=== PATIENT | female | born 1980 | race Caucasian/White ===

== ENCOUNTER 2018-09-13 21:26 | Emergency (ER) | payer OTHER ==
[2018-09-13 21:41] VITALS: BP 152/90; PULSE 86; O2SAT 96
--- NOTE | 2018-09-13 21:52 | ERPHSYRPT ---
- History of Present Illness Time Seen by Provider: 09/13/18 21:49 Source: patient Exam Limitations: no limitations Patient Subjective Stated Complaint: pt states she had surgery to foot this morning, noticed bright red blood soaked through bandages and caity bandage this evening, bandage removed and found incision to be partially unapproximated. pt unsure how it happened. Surgeon asked her to come in. Triage Nursing Assessment: pink/warm/dry, resp easy, a&ox4, wheeled in, non weight bearing to rt leg d/t surgery. surgeon called and spoke to nurse Osbaldo rn who asked for wound to be steri stripped and then sent home. Physician History: pt states she had surgery to foot this morning, noticed bright red blood soaked through bandages and caity bandage this evening, bandage removed and found incision to be partially unapproximated. pt unsure how it happened. Surgeon asked her to come in. No bleeding Occurred: just prior to arrival Allergies/Adverse Reactions: atorvastatin calcium [From Lipitor] Allergy (Verified 09/13/18 21:32) Dbeyixb-Ytj-Czz Reductase Inhibitor Allergy (Verified 09/13/18 21:32) Hx Tetanus, Diphtheria Vaccination/Date Given: Yes Hx Influenza Vaccination/Date Given: No Hx Pneumococcal Vaccination/Date Given: No Immunizations Up to Date: No - Review of Systems Constitutional: No Symptoms Eyes: No Symptoms Ears, Nose, & Throat: No Symptoms Respiratory: No Symptoms Cardiac: No Symptoms Musculoskeletal: No Symptoms Skin: No Symptoms - Past Medical History Pertinent Past Medical History: Yes Cardiac History: Myocardial Infarction ([place]) Respiratory History: Asthma Endocrine Medical History: Hypothyroidism Musculoskeletal History: Arthritis History: No Pertinent History Psycho-Social History: No Pertinent History Female Reproductive Disorders: Menstrual Problems - Past Surgical History Past Surgical History: Yes Cardiac: Cardiac Catheterization, Other Musculoskeletal: Orthopedic Surgery Female Surgical History: Section, Hysterectomy Other Surgical History: had open heart to fix aoritc valve leaflet, rt ankle tendon - Social History Smoking Status: Never smoker Exposure to second hand smoke: No Drug Use: none - Female History Hx Now: No - Nursing Vital Signs Nursing Vital Signs: Initial Vital Signs Pulse Rate 86 09/13/18 21:33 Respiratory Rate 16 09/13/18 21:33 Blood Pressure 152/90 09/13/18 21:33 O2 Sat by Pulse Oximetry 96 09/13/18 21:33 Pain Scale Pain Intensity 0 - Physical Exam General Appearance: no apparent distress Eyes, Ears, Nose, Throat Exam: normal ENT inspection Neck Exam: normal inspection Back Exam: normal inspection Foot Exam: right foot: soft tissue tenderness SpO2: 96 - Course Nursing assessment & vital signs reviewed: Yes Ordered Tests: Active Orders 24 hr Category Date Time Status Wound Care STAT Care 09/13/18 21:47 Active - Progress Progress: improved Progress Note: 09/13/18 21:50 wound care, steristripes Counseled pt/family regarding: diagnosis, need for follow-up - Departure Departure Disposition: Home Clinical Impression: Wound disruption Qualifiers: Encounter type: initial encounter Qualified Code(s): T81.30XA - Disruption of wound, unspecified, initial encounter Condition: Stable Critical Care Time: No Referrals: LUZMA POND NP [Primary Care Provider] - Additional Instructions: Discharge/Care Plan FRAN MARTINO was seen on 09/13/18 in the Emergency Room. The patient was counseled regarding Diagnosis,Lab results, Imaging studies, need for follow up and when to return to the Emergency Room. Prescriptions given: Discharge Note I have spoken with the patient and/or caregivers. I have explained the patient' s condition, diagnosis and treatment plan based on the information available to me at this time. I have answered the patient's and/or caregiver's questions and addressed any concerns. The patient and/or caregivers have as good understanding of the patient's diagnosis, condition and treatment plan as can be expected at this point. The vital signs have been stable. The patient's condition is stable and appropriate for discharge from the emergency department. The patient will pursue further outpatient evaluation with the primary care physician or other designated or consulting physician as outlined in the discharge instructions. The patient and/or caregivers are agreeable to this plan of care and follow-up instructions have been explained in detail. The patient and/or caregivers have received these instruction. The patient/and or caregivers are aware that any significant change in condition or worsening of symptoms should prompt an immediate return to this or the closest emergency department or call 911.
== END 2018-09-13 21:59 | disposition home or self-care (01) ==
LOC: ED 21:26
DX: T81.30XA Disruption of wound, unspecified, initial encounter (principal); Z98.890 Other specified postprocedural states; E03.9 Hypothyroidism, unspecified; M19.90 Unspecified osteoarthritis, unspecified site; I25.2 Old myocardial infarction
CPT/HCPCS: 99283

== ENCOUNTER 2020-02-22 15:22 | Emergency (ER) | payer OTHER ==
[2020-02-22] MEDS ORDERED: DUONEB 0.5-3 MG/3 ml Neb IH ONE ×2 (15:38)
[2020-02-22] MEDS ORDERED: solu-MEDROL 125 MG IV ONE (15:38)
[2020-02-22 15:50] VITALS: O2SAT 98
[2020-02-22] MEDS ORDERED: solu-MEDROL 125 MG ONE (15:53)
--- NOTE | 2020-02-22 16:02 | ERPHSYRPT ---
- History of Present Illness Time Seen by Provider: 02/22/20 15:39 Source: patient Exam Limitations: no limitations Patient Subjective Stated Complaint: asthma attack yesterday night Triage Nursing Assessment: pt to ED c/o not being able to take a deep breath. reports hx asthma and had asthma attack yesterday evening. has been using IH since then with minimal relief. reports aching in chest when attempting to take deep breath. lungs clear and equal, faint wheezing noted in L base of lung. no resp distress noted. Physician History: 39 years old female with history of asthma presented to the ER with chief complaint of sudden onset shortness of breath, tightness last night when she was cleaning. Also reports wheezings. She did use albuterol with no significant relief. No chest pain palpitations. She has minimal rectal dry cough. No fever or chills reported. Timing/Duration: yesterday, sudden, worse Activities at Onset: activity Severity of Dyspnea-Max: moderate Severity of Dyspnea-Current: moderate Possible Cause: occasional episodes, unknown cause Modifying Factors: Improves With: albuterol inhaler Associated Symptoms: cough, wheezing, No fever, No weakness, No heaviness, No heart racing Allergies/Adverse Reactions: atorvastatin calcium [From Lipitor] Allergy (Verified 02/22/20 15:35) Huyoeoh-Rrx-Goj Reductase Inhibitor Allergy (Verified 02/22/20 15:35) Home Medications: Aspirin 81 mg PO DAILY 02/22/20 [History] Desvenlafaxine Succinate [Pristiq ER] 50 mg PO DAILY 02/22/20 [History] Hydrochlorothiazide 12.5 mg PO DAILY 02/22/20 [History] Levothyroxine Sodium 112 Mcg [Synthroid 112 Mcg] 112 mcg PO DAILY 02/22/20 [History] Losartan Potassium 50 mg [Cozaar 50 MG] 50 mg PO BID 02/22/20 [History] Magnesium Oxide 400 mg [Mag-Ox 400] 400 mg PO DAILY 02/22/20 [History] Vits W-Ca,Fe,FA(<1Mg) [] 1 tab PO DAILY 02/22/20 [History] Spironolactone 50 mg PO DAILY 02/22/20 [History] Hx Tetanus, Diphtheria Vaccination/Date Given: No Hx Influenza Vaccination/Date Given: No Hx Pneumococcal Vaccination/Date Given: No Immunizations Up to Date: No Travel Risk - International Travel Have you traveled outside of the country in past 3 weeks: No - Coronavirus Screening Are you exhibiting any of the following symptoms?: No Close contact with a COVID-19 positive Pt in past 14-21 Days: No - Review of Systems Constitutional: No Symptoms Eyes: No Symptoms Ears, Nose, & Throat: No Symptoms Respiratory: Cough, Wheezing Cardiac: No Symptoms Abdominal/Gastrointestinal: No Symptoms Genitourinary Symptoms: No Symptoms Musculoskeletal: No Symptoms Skin: No Symptoms Neurological: No Symptoms Psychological: No Symptoms Endocrine: No Symptoms Hematologic/Lymphatic: No Symptoms - Past Medical History Pertinent Past Medical History: Yes Cardiac History: Myocardial Infarction ([place]) Respiratory History: Asthma Endocrine Medical History: Hypothyroidism Musculoskeletal History: Arthritis History: No Pertinent History Psycho-Social History: No Pertinent History Female Reproductive Disorders: No Pertinent History - Past Surgical History Past Surgical History: Yes Cardiac: Cardiac Catheterization, Other Musculoskeletal: Orthopedic Surgery Female Surgical History: Section, Hysterectomy Other Surgical History: had open heart to fix aoritc valve leaflet, rt ankle tendon - Social History Smoking Status: Never smoker Exposure to second hand smoke: No Drug Use: none Patient Lives Alone: No - Female History Hx Now: No - Nursing Vital Signs Nursing Vital Signs: Initial Vital Signs Temperature 98.6 F 02/22/20 15:25 Pulse Rate 91 H 02/22/20 15:25 Respiratory Rate 16 02/22/20 15:25 Blood Pressure 159/99 02/22/20 15:25 O2 Sat by Pulse Oximetry 99 02/22/20 15:25 Pain Scale Pain Intensity 0 - Physical Exam General Appearance: no apparent distress, alert Eye Exam: PERRL/EOMI, eyes nml inspection Ears, Nose, Throat Exam: hearing grossly normal, normal ENT inspection, normal pharynx Neck Exam: normal inspection, non-tender, supple, full range of motion Respiratory Exam: diminished breath sounds, wheezing, No respiratory distress, No crackles/rales Cardiovascular/Chest Exam: normal heart sounds, regular rate/rhythm Abdominal/Gastrointestinal Exam: soft, normal bowel sounds, No tenderness Extremity Exam: non-tender, normal range of motion, normal inspection Neurologic Exam: alert, 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, cooperative, 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-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 nml as tested Skin Exam: normal color, warm SpO2 Interpretation: normal SpO2: 98 O2 Delivery: Room Air - Course EKG Interpreted by Me: RATE (82), Sinus Rhythm, NORMAL AXIS, NORMAL INTERVALS, Q-wave (inf leads) Ordered Tests: Active Orders 24 hr Category Date Time Status Band Cutter STAT Care 02/22/20 15:40 Completed EKG-ER Only STAT Care 02/22/20 15:38 Completed IV Insertion STAT Care 02/22/20 15:38 Completed CHEST 1 VIEW (PORTABLE) Stat Exams 02/22/20 15:40 Completed CBC W DIFF Stat Lab 02/22/20 16:09 Completed CMP Stat Lab 02/22/20 16:09 Completed D-DIMER QUANTITATIVE Stat Lab 02/22/20 16:09 Completed HCG,QUALITATIVE URINE Stat Lab 02/22/20 16:09 Completed MAGNESIUM Stat Lab 02/22/20 16:09 Completed NT PRO BNP Stat Lab 02/22/20 16:09 Completed TROPONIN Q3H Lab 02/22/20 16:09 Completed TROPONIN Q3H Lab 02/22/20 17:50 Completed Respiratory Therapy Assessment DAILY RT 02/22/20 15:47 Completed Medication Summary Discontinued Medications Generic Name Dose Route Start Last Admin Trade Name Freq PRN Reason Stop Dose Admin Albuterol/Ipratropium Confirm 02/22/20 15:38 Duoneb 0.5-3 Mg/3 Ml Neb Administered 02/22/20 15:39 Dose 3 ml IH .STK-MED ONE Albuterol/Ipratropium 3 ml 02/22/20 15:38 02/22/20 15:48 Duoneb 0.5-3 Mg/3 Ml Neb IH 02/22/20 15:39 3 ml STAT ONE Administration Methylprednisolone Sodium Succinate 125 mg 02/22/20 15:38 02/22/20 16:03 Solu-Medrol 125 Mg IV 02/22/20 15:39 125 mg STAT ONE Administration Methylprednisolone Sodium Succinate Confirm 02/22/20 15:53 Solu-Medrol 125 Mg Administered 02/22/20 15:54 Dose 125 mg .ROUTE .STK-MED ONE Lab/Rad Data: Laboratory Result Diagrams 02/22/20 16:09 02/22/20 16:09 Laboratory Results 02/22/20 02/22/20 02/22/20 Range/Units 17:50 16:09 16:09 WBC (4.0-10.5) K/mm3 RBC (4.1-5.4) M/mm3 Hgb (12.0-16.0) gm/dl Hct (35-47) % MCV (78-100) fl MCH (26-32) pg MCHC (32-36) g/dl RDW (11.5-14.0) % Plt Count (150-450) K/mm3 MPV (7.5-11.0) fl Gran % (36.0-66.0) % Eos # (Auto) (0-0.5) Absolute Lymphs (auto) (1.0-4.6) Absolute Monos (auto) (0.0-1.3) Lymphocytes % (24.0-44.0) % Monocytes % (0.0-12.0) % Eosinophils % (0.00-5.0) % Basophils % (0.0-0.4) % Absolute Granulocytes (1.4-6.9) Basophils # (0-0.4) D-Dimer (215-500) ng/mL Sodium (137-145) mmol/L Potassium (3.5-5.1) mmol/L Chloride (98-107) mmol/L Carbon Dioxide (22-30) mmol/L Anion Gap (5-15) MEQ/L BUN (7-17) mg/dL Creatinine (0.52-1.04) mg/dL Estimated GFR ML/MIN Glucose (74-106) mg/dL Calcium (8.4-10.2) mg/dL Magnesium (1.6-2.3) mg/dL Total Bilirubin (0.2-1.3) mg/dL AST (14-36) U/L ALT (0-35) U/L Alkaline Phosphatase (38-126) U/L Troponin I < 0.012 < 0.012 (0.000-0.034) ng/mL NT-Pro-B Natriuret Pep (0-450) pg/mL Serum Total Protein (6.3-8.2) g/dL Albumin (3.5-5.0) g/dL Urine HCG, Qual NEGATIVE (Negative) 02/22/20 02/22/20 02/22/20 Range/Units 16:09 16: 16:09 WBC 11.4 H (4.0-10.5) K/mm3 RBC 5.22 (4.1-5.4) M/mm3 Hgb 14.9 (12.0-16.0) gm/dl Hct 44.8 (35-47) % MCV 85.8 (78-100) fl MCH 28.5 (26-32) pg MCHC 33.3 (32-36) g/dl RDW 12.7 (11.5-14.0) % Plt Count 252 (150-450) K/mm3 MPV 9.6 (7.5-11.0) fl Gran % 67.9 H (36.0-66.0) % Eos # (Auto) 0.36 (0-0.5) Absolute Lymphs (auto) 2.38 (1.0-4.6) Absolute Monos (auto) 0.87 (0.0-1.3) Lymphocytes % 21.0 L (24.0-44.0) % Monocytes % 7.7 (0.0-12.0) % Eosinophils % 3.2 (0.00-5.0) % Basophils % 0.2 (0.0-0.4) % Absolute Granulocytes 7.73 H (1.4-6.9) Basophils # 0.02 (0-0.4) D-Dimer 292 (215-500) ng/mL Sodium 138 (137-145) mmol/L Potassium 3.8 (3.5-5.1) mmol/L Chloride 104 (98-107) mmol/L Carbon Dioxide 28 (22-30) mmol/L Anion Gap 8.8 (5-15) MEQ/L BUN 13 (7-17) mg/dL Creatinine 0.82 (0.52-1.04) mg/dL Estimated GFR > 60.0 ML/MIN Glucose 95 (74-106) mg/dL Calcium 9.6 (8.4-10.2) mg/dL Magnesium 1.8 (1.6-2.3) mg/dL Total Bilirubin 0.30 (0.2-1.3) mg/dL AST 22 (14-36) U/L ALT 21 (0-35) U/L Alkaline Phosphatase 60 (38-126) U/L Troponin I (0.000-0.034) ng/mL NT-Pro-B Natriuret Pep 57.1 (0-450) pg/mL Serum Total Protein 7.0 (6.3-8.2) g/dL Albumin 4.2 (3.5-5.0) g/dL Urine HCG, Qual (Negative) - Progress Progress: improved Air Movement: good Progress Note: She is given DuoNeb and Solu-Medrol. Ruled out acute coronary syndrome, pulmonary embolism, pneumonia, pneumothorax. Patient is feeling much better on reevaluation. I believe she has asthma exacerbation we will continue with albuterol and steroid to go home. Discussed signs symptoms of worsening needing return to ER which she seems understanding. Blood Culture(s) Obtained: No Antibiotics given: No Counseled pt/family regarding: lab results, diagnosis, need for follow-up, samuel reddy - Departure Departure Disposition: Home Clinical Impression: Asthma exacerbation, mild Condition: Stable Critical Care Time: No Referrals: LUZMA POND, [employer] [employer] [Primary Care Provider] - Follow Up with PCP/3 days Instructions: Asthma, Adult ([place]) Additional Instructions: Use albuterol inhaler which you have at home every 4-6 hourly as needed. Take Tylenol as needed. Follow-up with your primary care physician for reevaluation. Return to ER for worsening wheezing/shortness of breath/cough or if develop fever chills/chest pain etc. Prescriptions: Prednisone 20 mg [Deltasone 20 mg] 60 mg PO DAILY 5 Days #15 tablet
[2020-02-22 16:14] LABS: Absolute Neutrophil Ct (ANC) 7.73 (1.4-6.9); BASOPHIL % 0.2 % (0.0-0.4); Basophil (Absolute #) 0.02 (0-0.4); Eosinophil % 3.2 % (0.00-5.0); Eosinophil (Absolute #) 0.36 (0-0.5); Hematocrit 44.8 % (35-47); Hemoglobin 14.9 gm/dl (12.0-16.0); Lymphocyte (Absolute #) 2.38 (1.0-4.6); Mean Cell Volume 85.8 fl (78-100); Mean Corpuscular Hemoglobin 28.5 pg (26-32); Mean Corpuscular Hgb Concent. 33.3 g/dl (32-36); Mean Platelet Volume 9.6 fl (7.5-11.0); Monocyte (Absolute #) 0.87 (0.0-1.3); Monocytes % 7.7 % (0.0-12.0); Neutrophil % 67.9 % (36.0-66.0); Platelet Count 252 K/mm3 (150-450); Red Blood Count 5.22 M/mm3 (4.1-5.4); Red Cell Distribution Width 12.7 % (11.5-14.0); White Blood Count 11.4 K/mm3 (4.0-10.5)
[2020-02-22 16:34] LABS: ALBUMIN 4.2 g/dL (3.5-5.0); ALKALINE PHOSPHATASE 60 U/L (38-126); ANION GAP 8.8 MEQ/L (5-15); BLOOD UREA NITROGEN 13 mg/dL (7-17); CHLORIDE 104 mmol/L (98-107); Calcium 9.6 mg/dL (8.4-10.2); Carbon Dioxide 28 mmol/L (22-30); Creatinine 1 0.82 mg/dL (0.52-1.04); EST GLOMERULAR FILTRATION RATE > 60.0 ML/MIN; Glucose 95 mg/dL (74-106); MAGNESIUM 1.8 mg/dL (1.6-2.3); NT PRO BNP 57.1 pg/mL (0-450); Potassium 3.8 mmol/L (3.5-5.1); SGOT/AST 22 U/L (14-36); SGPT/ALT 21 U/L (0-35); SODIUM 138 mmol/L (137-145)
[2020-02-22 17:26] VITALS: BP 150/90; PULSE 72
--- NOTE | 2020-02-22 18:13 | XRAY ---
Indication: Short of breath. Comparison: July 21, 2017. Portable apical lordotic chest remains clear. Heart is not enlarged again with CABG surgery. Bony thorax intact again with minimal degenerative changes and sternotomy wires. Impression: Continued nonacute chest with chronic features.
== END 2020-02-22 19:06 | disposition home or self-care (01) ==
LOC: ED 15:22
DX: J45.901 Unspecified asthma with (acute) exacerbation (principal)
CPT/HCPCS: 36000; 36415; 71045; 80053; 83735; 83880; 84484; 84703; 85025; 85379; 93005; 93041; 94640; 96374; 99284; J2930; A9270-GY

== ENCOUNTER 2021-08-04 18:58 | Emergency (ER) | payer OTHER ==
--- NOTE | 2021-08-04 21:54 | ERPHSYRPT ---
- History of Present Illness Time Seen by Provider: 08/04/21 20:20 Source: patient Exam Limitations: no limitations Patient Subjective Stated Complaint: Patient's nose began to bleed approx one hour prior to coming to ED. She does not have nosebleeds, this is new for her. Patient states she started on a new medicine, welburtin approx 10 to 11 days ago and is wondering if this could be a side effect from that. Patient states she also states she has high blood pressure and her mother had a recent set of events in the past that led to a stroke that has the patient worried/anxious. Patient denies any pain. Triage Nursing Assessment: Patient ambulated back to ED without difficulties. She is alert, oriented, pleasant, and answering questions appropriately. Nose actively bleeding out of left nare upon bringing patient back to ED; moderate amount of bleeding with no clots noted. Nasal bones noted to curve to the left, patient states her sister broke her nose once when they were kids. Patient denies any recent trauma to her nose. Patient instructed on the proper way to clamp nose, hold pressure, and apply cold compress to area during an active nose bleed. Patient very receptive to teaching. She is anxious though and became tearful when explaining her concerns about her health in relation to a previous health event with her mother. Patient Physician History: Patient is a 41-year-old female presents to our emergency department for evaluation of a nosebleed. Nosebleed started approximately 1 hour prior to arrival. Patient does not know how to control her nosebleeds has had to come to our ED for evaluation. Patient denies history of the same. Patient started Wellbutrin approximately 10 to 11 days ago. Patient wondering if this may have caused her nosebleed. No trauma. No fever. Patient is not on blood thinners. Symptoms are mild to moderate in intensity. Patient denies active pain. No easy bruising patient voices no other complaints or concerns at this time. Timing/Duration: today Severity: moderate Modifying Factors: Improves With: nothing Associated Symptoms: denies symptoms Allergies/Adverse Reactions: atorvastatin calcium [From Lipitor] Allergy (Verified 08/04/21 20:12) Edtgzwp-KTL-OxD Reductase Inhibitor [Qowjtpw-Jtr-Hfy Reductase Inhibitor] Allerg y (Verified 08/04/21 20:12) Home Medications: Levothyroxine Sodium 112 Mcg [Synthroid 112 Mcg] 112 mcg PO DAILY 02/22/20 [History] Losartan Potassium 50 mg [Cozaar 50 MG] 50 mg PO BID 02/22/20 [History] Magnesium Oxide 400 mg [Mag-Ox 400] 400 mg PO DAILY 02/22/20 [History] Spironolactone 50 mg PO DAILY 02/22/20 [History] hydroCHLOROthiazide [Hydrochlorothiazide] 12.5 mg PO DAILY 02/22/20 [History] Bupropion HCl 150 mg Sr [Wellbutrin SR 150 MG] 1 tab PO DAILY 08/04/21 [History] Hx Tetanus, Diphtheria Vaccination/Date Given: Yes Hx Influenza Vaccination/Date Given: Yes Hx Pneumococcal Vaccination/Date Given: No Immunizations Up to Date: Yes Travel Risk - International Travel Have you traveled outside of the country in past 3 weeks: No - Coronavirus Screening Are you exhibiting any of the following symptoms?: No Close contact with a COVID-19 positive Pt in past 14-21 Days: No - Vaccine Status Have you recieved a Covid-19 vaccination: Yes Head Librarian: Moderna - Vaccination Dates Date of 2cond Vaccination (if applicable): 2020 - Review of Systems Constitutional: No Symptoms, No Fever, No Chills Eyes: No Symptoms Ears, Nose, & Throat: No Symptoms Respiratory: No Symptoms, No Cough, No Dyspnea Cardiac: No Symptoms, No Chest Pain, No Edema, No Syncope Abdominal/Gastrointestinal: No Symptoms, No Abdominal Pain, No Nausea, No Vomiting, No Diarrhea Genitourinary Symptoms: No Symptoms, No Dysuria Musculoskeletal: No Symptoms, No Back Pain, No Neck Pain Skin: No Symptoms, No Rash Neurological: No Symptoms, No Dizziness, No Focal Weakness, No Sensory Changes Psychological: No Symptoms Endocrine: No Symptoms Hematologic/Lymphatic: No Symptoms Immunological/Allergic: No Symptoms All Other Systems: Reviewed and Negative - Past Medical History Pertinent Past Medical History: Yes Neurological History: No Pertinent History ENT History: No Pertinent History Cardiac History: Coronary Artery Disease, High Cholesterol, Hypertension, Myocardial Infarction ([place]) Respiratory History: Asthma Endocrine Medical History: Hypothyroidism Musculoskeletal History: Other History: No Pertinent History Psycho-Social History: No Pertinent History Female Reproductive Disorders: No Pertinent History Other Medical History: SX HX: CABG X 1 IN 2008, C-SECTIONS X 3 - Past Surgical History Past Surgical History: Yes Neuro Surgical History: No Pertinent History Cardiac: Cardiac Catheterization, Other Respiratory: No Pertinent History Gastrointestinal: No Pertinent History Musculoskeletal: Orthopedic Surgery Female Surgical History: Section, Hysterectomy Other Surgical History: had open heart to fix aoritc valve leaflet, rt ankle tendon - Social History Smoking Status: Never smoker Exposure to second hand smoke: No Drug Use: none Patient Lives Alone: No - Female History Hx Last Menstrual Period: No longer has periods Hx Now: No - Nursing Vital Signs Nursing Vital Signs: Initial Vital Signs Temperature 98.7 F 08/04/21 20:15 Pulse Rate 99 H 08/04/21 20:15 Respiratory Rate 19 08/04/21 20:15 Blood Pressure 188/114 08/04/21 20:15 O2 Sat by Pulse Oximetry 99 08/04/21 20:15 Pain Scale Pain Intensity 0 - Physical Exam General Appearance: no apparent distress, alert Eye Exam: PERRL/EOMI, eyes nml inspection Ears, Nose, Throat Exam: normal ENT inspection, TMs normal, pharynx normal, moist mucous membranes, other (Bleeding from the left nare.) Neck Exam: normal inspection, non-tender, supple, full range of motion Respiratory Exam: normal breath sounds, lungs clear, airway intact, No respiratory distress Cardiovascular Exam: regular rate/rhythm, normal heart sounds, normal peripheral pulses Gastrointestinal/Abdomen Exam: soft, normal bowel sounds, No tenderness, No mass Back Exam: normal inspection, normal range of motion, No CVA tenderness, No vertebral tenderness Extremity Exam: normal inspection, normal range of motion, pelvis stable Neurologic Exam: alert, 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, cooperative, normal mood/affect, nml cerebellar function, nml station & gait, sensation nml, No motor deficits Skin Exam: normal color, warm, dry, No rash Lymphatic Exam: No adenopathy SpO2 Interpretation: normal SpO2: 99 O2 Delivery: Room Air - Course Nursing assessment & vital signs reviewed: Yes - Progress Progress: improved Progress Note: Patient reassessed. She is well. Bleeding resolved after using nose clamps. Patient ready for discharge. No indication for further work-up at this time. Will discharge home. Patient agrees to follow-up with primary care doctor within 48 hours for evaluation. Portions of this note were created with voice recognition technology. There may be grammatical, spelling, punctuation or sound alike errors 08/04/21 22:01 Counseled pt/family regarding: diagnosis, need for follow-up - Departure Departure Disposition: Home Clinical Impression: Epistaxis Condition: Stable Critical Care Time: No Referrals: [facility] [Primary Care Provider] - Follow up/PCP as kristan acuña Instructions: Nosebleeds Additional Instructions: Discharge/Care Plan FRAN MARTINO was seen on 08/04/21 in the Emergency Room. The patient was counseled regarding Diagnosis,Lab results, Imaging studies, need for follow up and when to return to the Emergency Room. Prescriptions given: Discharge Note I have spoken with the patient and/or caregivers. I have explained the patient's condition, diagnosis and treatment plan based on the information available to me at this time. I have answered the patient's and/or caregiver's questions and addressed any concerns. The patient and/or caregivers have as good understanding of the patient's diagnosis, condition and treatment plan as can be expected at this point. The vital signs have been stable. The patient's condition is stable and appropriate for discharge from the emergency department. The patient will pursue further outpatient evaluation with the primary care physician or other designated or consulting physician as outlined in the discharge instructions. The patient and/or caregivers are agreeable to this plan of care and follow-up instructions have been explained in detail. The patient and/or caregivers have received these instruction. The patient/and or caregivers are aware that any significant change in condition or worsening of symptoms should prompt an immediate return to this or the closest emergency department or call 911.
[2021-08-04 22:10] VITALS: BP 151/96; PULSE 87; O2SAT 97
== END 2021-08-04 22:09 | disposition home or self-care (01) ==
LOC: ED 18:58
DX: R04.0 Epistaxis (principal); E78.5 Hyperlipidemia, unspecified; I10 Essential (primary) hypertension; I25.2 Old myocardial infarction; Z79.899 Other long term (current) drug therapy
CPT/HCPCS: 99283

== ENCOUNTER 2022-02-27 07:42 | Day surgery (SDC) | payer OTHER ==
[~2022-02-27 07:42] MED LIST: Sensorcaine 0.25% 10 ML ONE
[2022-02-27] MEDS ORDERED: Lactated Ringers 1,000 ML IV SCH (08:30)
[2022-02-27] MEDS ORDERED: MEFOXIN 2 GM PREMIX** 2 GM/50 ML ML IV ONE (08:53)
[2022-02-27] MEDS ORDERED: Lactated Ringers 1,000 ML IV ONE ×2 (08:54→12:34)
[2022-02-27] MEDS ORDERED: MEFOXIN 2 GM PREMIX** 2 GM/50 ML ML IV SCH (09:00)
[2022-02-27] MEDS ORDERED: Versed 2 MG/2 ML Injection IV ONE (09:53)
[2022-02-27] MEDS ORDERED: Zemuron 100 MG/10 ML ONE (10:18)
[2022-02-27] MEDS ORDERED: Xylocaine-Mpf 2% 5 Ml Vial ONE (10:18)
[2022-02-27] MEDS ORDERED: BRIDION 200MG/2ML IV ONE (10:18)
[2022-02-27] MEDS ORDERED: TORAdol 30 mg Injection ONE (10:18)
[2022-02-27] MEDS ORDERED: SUBLIMAZE 100 MCG/2 ML ONE ×2 (10:18→12:40)
[2022-02-27] MEDS ORDERED: Zofran 4 MG/2 ML VIAL ONE (10:18)
[2022-02-27] MEDS ORDERED: Decadron 4 MG INJ ONE (10:18)
[2022-02-27] MEDS ORDERED: DIPRIVAN 200 MG/20 ML IV ONE (10:18)
[2022-02-27] MEDS ORDERED: OFIRMEV 100 ML IV ONE (10:29)
[2022-02-27] MEDS ORDERED: Hydromorphone 1 mg/ml Injection ONE (12:22)
[2022-02-27] MEDS ORDERED: MORPHINE SULFATE 4 MG INJ IV PRN (13:21)
[2022-02-27] MEDS ORDERED: MORPHINE SULFATE 4 MG INJ ONE (13:23)
[2022-02-27] MEDS ORDERED: Transderm Scop 1.5MG Patch TOP ONE (14:06)
[2022-02-27] MEDS ORDERED: Zofran 4 MG/2 ML VIAL IV STA (14:10)
[2022-02-27 14:17] VITALS: BP 146/97; PULSE 65; O2SAT 95
--- NOTE | 2022-02-28 10:20 | OP ---
SURGERY DATE/TIME: 02/27/2022 1049 PREOPERATIVE DIAGNOSIS: Acute exacerbation of chronic cholecystitis, symptomatic cholelithiasis. POSTOPERATIVE DIAGNOSIS: Acute exacerbation of chronic cholecystitis, symptomatic cholelithiasis. PROCEDURE: Laparoscopic cholecystectomy. SURGEON: Dr. Pieter Azevedo. ANESTHESIA: General. ESTIMATED BLOOD LOSS: Minimal. INDICATIONS: As noted above. Risks and benefits explained in detail but not limited to and consent obtained. DESCRIPTION OF PROCEDURE AND FINDINGS: The patient was taken to the operating room. General anesthesia is induced. Abdomen prepped and draped in usual sterile fashion. After official time out and no disagreement with planned procedure, a transverse incision made in the supraumbilical area. Fascia grasped and pulled upwards. She had quite loose adipose tissue here. It took a little bit of time to finally get the needle in deep to get into the peritoneal cavity, was able to get pneumoperitoneum insufflating opening pressure of 0 to 15. Initially the needle was slipping back given a little preperitoneal insufflation but was able to get the Veress needle in the intraperitoneal position. Insufflation opening pressure 0 to 15. A 5 mm bladeless port and camera were inserted without difficulty followed by two - 5 mm right upper quadrant ports and 11 mm epigastric port. The patient was then positioned. There was no evidence of any intra-abdominal injury secondary to trocar or Veress needle placement. The gallbladder was quite long and distended. Dissected posterior to anterior fashion slowly and carefully cystic duct infundibular area carefully well skeletonized until the critical view was obtained both anteriorly and posteriorly. Once this is accomplished, the cystic duct and cystic artery were clipped x3 and divided in the usual fashion. The main cystic artery isolated clipped x3 and divided in usual fashion over the gallbladder wall. The gallbladder is slowly and carefully dissected free from its dense attachment to liver bed clipping additional oozing side branches off the cystic vein, cystic artery branches directly on the gallbladder wall as necessary. Just prior to releasing from final attachments to the anterior edge of the liver, the liver bed re-inspected. Clips noted in place in cystic duct and cystic artery stumps. No signs of any active bleeding or bile leakage. It was felt there was no benefit from drain placement. The gallbladder was released from final attachments to anterior edge of the liver and placed in the provided sac pulled up, decompressed of bile and multiple moderately large stones carefully retrieved with [place] clamp allowing the gallbladder and bag to be pulled free. The fascial defect closed with puncture closure device with #1 Vicryl. Pneumoperitoneum decompressed. The wound irrigated out. Skin incision closed with 4-0 Vicryl. Steri-Strips and sterile dressing applied. The patient tolerated the procedure well. There were no immediate complications. I went to look for the family following the procedure afterwards. She was transferred to the recovery room in stable condition.
== END 2022-02-27 14:28 | disposition home or self-care (01) ==
LOC: SDC 07:42
PROVIDERS: ATTEND Surgery
DX: K80.10 Calculus of gallbladder with chronic cholecystitis without obstruction (principal)
CPT/HCPCS: J0694; J1100; J1170; J1885; J2250; J2270; J2405; J2704; J3010; A9270-GY

== ENCOUNTER 2023-04-03 21:10 | Emergency (ER) | payer OTHER ==
[2023-04-03 21:15] VITALS: TEMP 97.7
[2023-04-03] MEDS ORDERED: DELTASONE 20 MG ONE (21:25)
[2023-04-03] MEDS: DELTASONE 20 MG PO ONE (21:26)
--- NOTE | 2023-04-03 21:33 | ERPHSYRPT ---
- History of Present Illness Time Seen by Provider: 04/03/23 21:30 Source: patient Exam Limitations: no limitations Patient Subjective Stated Complaint: shortness of breath Triage Nursing Assessment: pt ambulated into ER without diff, spouse at bedside. Pt c/o sob. Pt was cooking hamburgers tonight and over cooked them and the house became smoky and pt began to become sob. Pt used her inhaler 6-8 times with no relief. Lungs clear bilat ant and post. O2 sats 100% on rm air. No cough. Physician History: Patient is a 42-year-old female presents to our ED for evaluation of possible asthma exacerbation. Patient states she was cooking hamburgers. The house became smoky and she felt short of breath. Patient use albuterol rescue inhaler approximately 8 times. Patient currently asymptomatic with regard to resp iration. Patient complains of feeling jittery likely due to the amount of albuterol she self administered. Physical exam essentially nonremarkable. Patient voices no other complaints or concerns at this time. Portions of this note were created with voice recognition technology. There may be grammatical, spelling, punctuation or sound alike errors Timing/Duration: today Activities at Onset: none Severity of Dyspnea-Max: moderate Severity of Dyspnea-Current: mild Possible Cause: smoke exposure Modifying Factors: Improves With: activity Associated Symptoms: denies symptoms Allergies/Adverse Reactions: atorvastatin calcium [From Lipitor] Allergy (Verified 04/03/23 21:26) muscles seize up Tuiwyuc-RXR-JnJ Reductase Inhibitor [Ebazokt-Fjp-Zmk Reductase Inhibitor] Allergy (Verified 04/03/23 21:26) muscles seize up Home Medications: Losartan Potassium 50 mg [Cozaar 50 MG] 100 mg PO BID 02/22/20 [History] Magnesium Oxide 400 mg [Mag-Ox 400] 400 mg PO DAILY 02/22/20 [History] Spironolactone 50 mg PO DAILY 02/22/20 [History] hydroCHLOROthiazide [Hydrochlorothiazide] 25 mg PO DAILY 02/22/20 [History] Ergocalciferol (Vitamin D2) [Vitamin D2] 1 tab PO DAILY 02/01/22 [History] Levothyroxine Sodium 137 mcg PO DAILY 02/01/22 [History] Carvedilol 3.125 mg [Coreg 3.125 MG] 3.125 mg PO DAILY 02/21/22 [History] Cetirizine HCl [Allergy Relief] 10 mg PO DAILY 02/21/22 [History] Ezetimibe 10 mg [Zetia 10 MG] 10 mg PO DAILY 02/21/22 [History] Potassium Chloride 10 meq PO DAILY 02/21/22 [History] Hx Tetanus, Diphtheria Vaccination/Date Given: Yes Hx Influenza Vaccination/Date Given: Yes Hx Pneumococcal Vaccination/Date Given: No Immunizations Up to Date: Yes Travel Risk - International Travel Have you traveled outside of the country in past 3 weeks: No - Coronavirus Screening Are you exhibiting any of the following symptoms?: No Close contact with a COVID-19 positive Pt in past 14-21 Days: No - Vaccine Status Have you recieved a Covid-19 vaccination: Yes 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 - Review of Systems Constitutional: No Symptoms, No Fever, No Chills Eyes: No Symptoms Ears, Nose, & Throat: No Symptoms Respiratory: No Symptoms, No Cough, No Dyspnea Cardiac: No Symptoms, No Chest Pain, No Edema, No Syncope Abdominal/Gastrointestinal: No Symptoms, No Abdominal Pain, No Nausea, No Vomiting, No Diarrhea Genitourinary Symptoms: No Symptoms, No Dysuria Musculoskeletal: No Symptoms, No Back Pain, No Neck Pain Skin: No Symptoms, No Rash Neurological: No Symptoms, No Dizziness, No Focal Weakness, No Sensory Changes Psychological: No Symptoms Endocrine: No Symptoms Hematologic/Lymphatic: No Symptoms Immunological/Allergic: No Symptoms All Other Systems: Reviewed and Negative - Past Medical History Pertinent Past Medical History: Yes Neurological History: No Pertinent History ENT History: No Pertinent History Cardiac History: Coronary Artery Disease, High Cholesterol, Hypertension, Myocardial Infarction ([place]) Respiratory History: Asthma Endocrine Medical History: Hypothyroidism Musculoskeletal History: Other GI Medical History: Gallbladder Disease History: No Pertinent History Psycho-Social History: No Pertinent History Female Reproductive Disorders: No Pertinent History Other Medical History: SX HX: CABG X 1 IN 2008, C-SECTIONS X 3 - Past Surgical History Past Surgical History: Yes Neuro Surgical History: No Pertinent History Cardiac: CABG, Cardiac Catheterization, Other Respiratory: No Pertinent History Gastrointestinal: Cholecystectomy, Other Genitourinary: No Pertinent History Musculoskeletal: Orthopedic Surgery Female Surgical History: Section, Hysterectomy Other Surgical History: had open heart to fix aoritc valve leaflet, rt ankle tendon, gastric bypass - Social History Smoking Status: Never smoker Exposure to second hand smoke: No Drug Use: none Patient Lives Alone: No - Female History Hx Now: No - Nursing Vital Signs Nursing Vital Signs: Initial Vital Signs Temperature 97.7 F 04/03/23 21:12 Pulse Rate 90 04/03/23 21:12 Respiratory Rate 26 H 04/03/23 21:12 Blood Pressure 184/127 04/03/23 21:12 O2 Sat by Pulse Oximetry 98 04/03/23 21:12 Pain Scale Pain Intensity 0 - Physical Exam General Appearance: no apparent distress, alert Eye Exam: PERRL/EOMI Ears, Nose, Throat Exam: hearing grossly normal, normal ENT inspection, normal pharynx Neck Exam: normal inspection, supple, full range of motion Respiratory Exam: normal breath sounds, lungs clear, airway intact, No respiratory distress Cardiovascular/Chest Exam: normal heart sounds, regular rate/rhythm Abdominal/Gastrointestinal Exam: soft, No tenderness, No distention, No mass Extremity Exam: non-tender, normal range of motion, normal inspection, no calf tenderness, no pedal edema Neurologic Exam: alert, 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, cooperative, sensation nml, No motor deficits Skin Exam: normal color, warm, No dry Lymphatic Exam: No adenopathy SpO2 Interpretation: normal SpO2: 100 O2 Delivery: Room Air - Course Nursing assessment & vital signs reviewed: Yes EKG Interpreted by Me: RATE ([id number]), Sinus Rhythm, NORMAL AXIS, NORMAL INTERVALS Ordered Tests: Medication Summary Discontinued Medications Generic Name Dose Route Start Last Admin Trade Name Eduard PRN Reason Stop Dose Admin Prednisone 60 mg 04/03/23 21:23 Prednisone 20 Mg Tablet PO 04/03/23 21:24 STAT ONE Prednisone Confirm 04/03/23 21:25 Prednisone 20 Mg Tablet Administered 04/03/23 21:26 Dose 60 mg .ROUTE .STK-MED ONE - Progress Progress: unchanged Air Movement: good Progress Note: 42-year-old female history of asthma presents to our ED after experiencing some shortness of breath with smoke exposure. Patient self treated with albuterol rescue inhaler. Patient currently asymptomatic. Vital stable. No indication for additional albuterol treatment. Patient received a dose of prednisone in our ED. Patient will be discharged home. A prescription for prednisone forwarded to patient's pharmacy. Patient agrees to follow-up with her primary care doctor within 48 hours for evaluation. Portions of this note were created with voice recognition technology. There may be grammatical, spelling, punctuation or sound alike errors Complexity problem addressed is low acute uncomplicated Complexity of data reviewed and analyzed is none. Diagnosis made based on history and physical examination. No specialized testing ordered. Risk of complication and a risk of morbidity/mortality of patient management is moderate. A prescription for prednisone forwarded to patient's pharmacy. Vital stable. Time spent to discharge patient is approximately 15 minutes. Plan of care established for shared decision making. No social determinants of health present impede follow-up. Portions of this note were created with voice recognition technology. There may be grammatical, spelling, punctuation or sound alike errors 04/03/23 21:36 Blood Culture(s) Obtained: No Antibiotics given: No Counseled pt/family regarding: diagnosis, need for follow-up - Departure Departure Disposition: Home Clinical Impression: Asthma exacerbation, Smoke exposure, Shortness of breath Condition: Stable Critical Care Time: No Referrals: FLORES FELTON DO [Primary Care Provider] - Follow up/PCP as directed Additional Instructions: Discharge/Care Plan FRAN MARTINO was seen on 04/03/23 in the Emergency Room. The patient was counseled regarding Diagnosis,Lab results, Imaging studies, need for follow up and when to return to the Emergency Room. Prescriptions given: Discharge Note I have spoken with the patient and/or caregivers. I have explained the patient's condition, diagnosis and treatment plan based on the information available to me at this time. I have answered the patient's and/or caregiver's questions and addressed any concerns. The patient and/or caregivers have as good understanding of the patient's diagnosis, condition and treatment plan as can be expected at this point. The vital signs have been stable. The patient's condition is stable and appropriate for discharge from the emergency department. The patient will pursue further outpatient evaluation with the primary care physician or other designated or consulting physician as outlined in the discharge instructions. The patient and/or caregivers are agreeable to this plan of care and follow-up instructions have been explained in detail. The patient and/or caregivers have received these instruction. The patient/and or caregivers are aware that any significant change in condition or worsening of symptoms should prompt an immediate return to this or the closest emergency department or call 911. Prescriptions: Prednisone 10 mg [Deltasone 10 mg] 40 mg PO DAILY 3 Days #12 tablet
[2023-04-03 22:07] VITALS: BP 153/87; PULSE 83; RESP 19; O2SAT 97
== END 2023-04-03 22:09 | disposition home or self-care (01) ==
LOC: ED 21:10
DX: J45.901 Unspecified asthma with (acute) exacerbation (principal); T59.811A Toxic effect of smoke, accidental (unintentional), initial encounter; J70.5 Respiratory conditions due to smoke inhalation; R06.02 Shortness of breath; E78.5 Hyperlipidemia, unspecified; I10 Essential (primary) hypertension; Z79.52 Long term (current) use of systemic steroids; Z79.899 Other long term (current) drug therapy
CPT/HCPCS: 93005; 99283; A9270-GY

== ENCOUNTER 2023-10-23 07:02 | Day surgery (SDC) | payer OTHER ==
[2023-10-23] MEDS ORDERED: Lactated Ringers 1,000 ML IV ONE ×3 (07:43→15:51)
[2023-10-23] MEDS ORDERED: CEFAZOLIN 2 GM/100 ML NaCl 2 GM/100 ML IVPB IV ONE (07:43)
[2023-10-23] MEDS ORDERED: EXPAREL 133 MG/10 ML VIAL IJ ONE (07:52)
[2023-10-23] MEDS ORDERED: Pepcid 20 MG VIAL IV ONE (07:53)
[2023-10-23] MEDS ORDERED: Decadron 4 MG ONE (07:53)
[2023-10-23] MEDS ORDERED: TYLENOL EXTRA STRENGTH 500 MG ONE (07:53)
[2023-10-23] MEDS ORDERED: Reglan 10 MG/2 ML ONE (07:53)
[2023-10-23] MEDS ORDERED: NEURONTIN ONE (07:53)
[2023-10-23] MEDS ORDERED: Transderm Scop 1.5MG Patch ONE (07:53)
[2023-10-23] MEDS ORDERED: celeBREX 100 MG ONE (07:54)
[2023-10-23] MEDS ORDERED: Versed 2 MG/2 ML Injection ONE ×2 (07:54→10:20)
[2023-10-23] MEDS ORDERED: Marcaine 0.5%/Epinephrine 10 ML ONE (07:54)
[2023-10-23] MEDS: Pepcid 20 MG VIAL IV ONE (08:03)
[2023-10-23] MEDS: Reglan 10 MG/2 ML IV ONE (08:03)
[2023-10-23] MEDS: Decadron 4 MG PO ONE (08:04)
[2023-10-23] MEDS: Transderm Scop 1.5MG Patch TOP PRN (08:04)
[2023-10-23] MEDS: NEURONTIN PO ONE (08:06)
[2023-10-23] MEDS: TYLENOL EXTRA STRENGTH 500 MG PO ONE (08:15)
[2023-10-23] MEDS: celeBREX 100 MG PO ONE (08:16)
[2023-10-23] MEDS: Lactated Ringers 1,000 ML IV SCH (08:36)
[2023-10-23] MEDS: CEFAZOLIN 2 GM/100 ML NaCl 2 GM/100 ML IVPB IV SCH (08:36)
[2023-10-23] MEDS ORDERED: DIPRIVAN 200 MG/20 ML IV ONE (10:14)
[2023-10-23] MEDS ORDERED: Zofran 4 MG/2 ML VIAL ONE (10:16)
[2023-10-23] MEDS ORDERED: Xylocaine-Mpf 2% 5 Ml Vial ONE (10:16)
[2023-10-23] MEDS ORDERED: Decadron 4 MG INJ ONE (10:16)
[2023-10-23] MEDS ORDERED: SUBLIMAZE 100 MCG/2 ML ONE ×2 (10:20→15:40)
[2023-10-23] MEDS ORDERED: Quelicin Fliptop 200 MG/10 ML ONE (10:44)
[2023-10-23] MEDS ORDERED: ROCURONIUM BROMIDE IV ONE (11:01)
[2023-10-23] MEDS ORDERED: PHENYLEPHRINE HCL ONE (11:14)
[2023-10-23] MEDS ORDERED: Ephedrine Sulfate 50 MG/ML ONE (11:44)
[2023-10-23] MEDS ORDERED: PITRESSIN 20 UNITS IJ ONE (12:20)
--- NOTE | 2023-10-23 13:47 | XRAY ---
Indication: Left gastrocnemius recession, medial calcaneal wedge osteotomy, posterior tibial tendon advancement/tendon transfer, and deltoid ligament repair. Intraoperative fluoroscopy right for 5 minutes 36 seconds. 30 digital spot images submitted for interpretation demonstrates osteotomies anterior and posterior calcaneus with 2 posterior fixation screws and anterior calcaneal spacer. Correlate with intraoperative findings/report.
[2023-10-23] MEDS ORDERED: BRIDION 200MG/2ML IV ONE (13:59)
--- NOTE | 2023-10-23 14:57 | XRAY ---
Five minutes and 36 seconds of fluoroscopy was used in surgery for a left gastrocnemius recession, medial calcaneal wedge osteotomy, posterior tibial tendon advancement/tendon transfer, and deltoid ligament repair.
[2023-10-23] MEDS ORDERED: Hydromorphone 1 mg/ml Injection ONE (15:18)
[2023-10-23 16:20] VITALS: RESP 16; TEMP 97.9
[2023-10-23 16:34] VITALS: BP 111/67; PULSE 86; O2SAT 94
--- NOTE | 2023-10-25 11:01 | OP ---
SURGERY DATE/TIME: 10/23/2023 3227 - [id number] PREOPERATIVE DIAGNOSES: 1) Gastrocnemius equinus, left. 2) Calcaneal valgus. 3) Forefoot adduction. 4) Accessory navicular. 5) Posterior tibial tendon dysfunction. 6) Deltoid insufficiency. POSTOPERATIVE DIAGNOSIS: 1) Gastrocnemius equinus, left. 2) Calcaneal valgus. 3) Forefoot adduction. 4) Accessory navicular. 5) Posterior tibial tendon dysfunction. 6) Deltoid insufficiency. PROCEDURE: 1) Gastrocnemius resection, left. 2) Koutsogiannis or medial calcaneal displacement osteotomy, left. 3) Huffman calcaneal wedge, left. 4) Excision of accessory navicular. 5) Advancement of posterior tibial tendon. 6) Repair of deltoid ligament. SURGEON: Wilmer George DPM METAL REED TUNER: None. ANESTHESIA: General, plus a preoperative popliteal and saphenous block. HEMOSTASIS: Thigh tourniquet set to 300 mmHg for a total of 80 total tourniquet minutes. ESTIMATED BLOOD LOSS: Approximately 50 mL. MATERIALS: 1) A 6.5 x 38 and 6.5 x 44 partially threaded variable pitch screw. 2) A 21 x 17.5 x 11 Riptide wedge with 2 mL of StrataGraft Plus. 3) Two 1.45 JuggerKnot for the posterior tibial tendon advancement and accessory navicular excision. 4) One 1.45 JuggerKnot for the deltoid repair. 5) 2-0 Vicryl, 3-0 nylon, 4-0 Monocryl. INJECTABLES: See anesthesia report for details. INDICATIONS: The patient is a very pleasant 43-year-old female who presented to my service with concerns over a painful pes planus to the left lower extremity. Patient's primary concern was that her foot fell so flat it caused a significant amount of pain with ambulation, particularly within her arch, due to the fact that her foot falls so flat that the arch makes contact with the ground. There was also some concerns of fibular impingement. As a result, patient was assessed and deemed to have fairly flexible adult onset flatfoot and, as a result, decision-making was made with regard to what procedure would best suit her. Patient has no arthritis, so the decision was made to perform joint salvage procedures. From that standpoint, patient was made aware of all risks, complications and benefits of surgical intervention at this time, including but not limited to infection, hematoma, seroma, possibility of delayed wound healing, non-wound healing, possible need for further surgical intervention at a later date. No guarantees were provided as to the outcome of surgical intervention. Primary objective is to alleviate pain. This is not a cosmetic procedure. Conservative measures have failed at this time and she would like to proceed with reconstruction. As stated, plenty of time was allowed for the patient to ask questions which were answered to her apparent satisfaction. It is at this time we decided to proceed. DESCRIPTION OF PROCEDURE AND FINDINGS: Patient was brought into the PACU prior to the procedure and provided a popliteal and saphenous block. Once the blocks had taken place, the patient was brought into the operating room, placed on the operating room table in the supine position. At this time, general anesthesia was administered until the patient was adequately sedated. A well-padded thigh tourniquet was applied to the patient's right lower extremity and the tourniquet was set to 300 mmHg. Following this, the left lower extremity was prepped and draped in typical sterile fashion and lowered onto the surgical field. At this time, attention was directed to the posteromedial aspect of the palpable dell of the gastrocnemius muscle belly and the calf. At the posteromedial aspect of the calf, a linear incision was made making sure not to damage any neurovascular structures. Once this incision was made, blunt dissection was carried down to crura fascia. The crura fascia was then incised utilizing a 10 blade being careful not to damage the muscle belly below. A pediatric speculum was then introduced into the deficit. Retraction was held utilizing the speculum and [employer]. When opened, the speculum gave excellent exposure to the aponeurosis of the gastrocnemius muscle belly. This was scored utilizing a fresh 10 blade revealing the muscle below. The foot was then dorsiflexed and any constrictors that were identified were cut with a Metzenbaum scissors. Following this, copious amounts of sterile saline were utilized to flush the surgical site. Then, 2-0 Vicryl was utilized to coapt the subcutaneous edges in a simple buried interrupted-type fashion and then 3-0 nylon was utilized in a horizontal mattress-type fashion to coapt the skin edges in an everted position. Following this, attention was directed to the calcaneus under lateral view. Four sites were identified as our entrance holes and exit holes for the Gigli saw to enter completely around the bone making full-thickness elevations of these areas, passing the Gigli from the plantar lateral aspect over the top of the calcaneus as close to the bone as possible, and exiting out of the plantar medial aspect. This was checked under fluoroscopic guidance. The Gigli saw was passed from side to side, passing through the calcaneus segmenting the calcaneus which was then removed. This was then shifted approximately 1 cm medially and then this was pinned utilizing a 6.5 x 38 and 6.5 x 44 mm headless compression screw. Once position was assessed, the calcaneal axial and lateral views were assessed and deemed to be in an adequate position. Following this, linear incision was made at the lateral wall of the anterior process of the calcaneus at the midline of the calcaneal cuboid joint. Following this, a measure was utilized to identify approximately 1.1 to 1.5 mm from the calcaneal cuboid joint and perpendicular to the weightbearing access. Once this was identified, a 31 mm sagittal saw was utilized to score the bone in line with this orientation, which was pinned utilizing K wires. This was then carried through to greenstick the medial cortex of the calcaneus at this level utilizing a series of increasingly sized osteotomes. Following this, the peroneal tendons were retracted out of the site making sure not to damage them in the process. Following this, a 21 x 17.5 mm x 11 mm Riptide wedge, which was packed with 2 mL of StrataGraft, was introduced into the deficit after trialing and assessing the talonavicular position as well as the position of the forefoot. This was deemed to be adequate. Hypermobility was assessed to the forefoot and deemed to be acceptable. We did forego proceeding with the plantar flexor wedge of the first tarsometatarsal joint due to the fact that the peroneus longus was excellent in reducing the forefoot varus. Following this, attention was then directed to the posterior tibial tendon insertion site on the navicular. A linear incision was made utilizing a 10 blade carrying this down to the level of the tendon sheath, which was incised, being careful not to damage any neurovascular structures along the way. This was elevated off of the accessory navicular which was then resected utilizing a 31 mm sagittal saw. Once the adequate amount of resection was carried out, the posterior tibial tendon was then advanced anteriorly and anchored utilizing two 1.45 JuggerKnot into the footprint of where the posterior tibial tendon was originally, gaining approximately 1 to 1.5 cm of advancement. From that standpoint, attention was directed to the deltoid where stress views were taken under mortise imaging of the ankle. Noticing that there was gapping, decision was made to repair the deep deltoid. This was carried out by carrying the incision from the posterior tibial tendon advancement and resecting a small portion of the deltoid ligament approximately 4 mm from the deltoid. A 1.45 JuggerKnot was then introduced into the medial malleolus which the suture anchor was brought under the deltoid ligament which was then sutured into the footprint of the resected portion. While the foot was held in an inverted position, the suture was then tied down by hand tie and then 2-0 Vicryl was utilized to repair the deltoid tear. Following this, stress views were taken, loaded pictures were taken of the foot demonstrating significant improvement in the position overall from the flatfoot to a rectus foot. This patient had a significant amount of arch at this time and position was assessed to be excellent. Copious amounts of sterile saline were utilized to flush the surgical site. All surgical incisions were then coapted utilizing a 4-0 Monocryl for subcutaneous closure and 3-0 nylon for skin closure in a simple everted-type fashion. Following this, a dressing consisting of Betadine, Adaptic, 4 x 4, Kerlix, ABD and a well-padded posterior splint with sugar tong was applied to the patient's left lower extremity with the foot orthogonal relative to longitudinal axis of the leg. Patient was then reversed from anesthesia and returned to the postoperative anesthesia care unit with vital signs stable and vascular status intact. Patient handled the anesthesia as well as the procedure without significant complication. Postoperative orders as indicated in the patient's discharge chart.
== END 2023-10-23 16:50 | disposition home or self-care (01) ==
LOC: SDC 07:02
PROVIDERS: ATTEND Podiatrist Foot & Ankle Surgery
DX: Q66.82 Congenital vertical talus deformity, left foot (principal); M24.575 Contracture, left foot; M76.822 Posterior tibial tendinitis, left leg; S93.422A Sprain of deltoid ligament of left ankle, initial encounter
CPT/HCPCS: 73630; 76000; 76937; 87086; J0330; J0690; J1100; J1170; J2250; J2371; J2405; J2704; J3010; A9270-GY

== ENCOUNTER 2024-01-31 10:16 | Day surgery (SDC) | payer OTHER ==
[~2024-01-31 10:16] MED LIST changes: +Marcaine Mpf 0.5% Vial 30 Ml ONE; -Sensorcaine 0.25% 10 ML ONE; +XYLOCAINE 1% HCL 20 ML MDV ONE
[2024-01-31] MEDS ORDERED: NEURONTIN ONE ×2 (10:57→10:58)
[2024-01-31] MEDS ORDERED: celeBREX 100 MG ONE (10:57)
[2024-01-31] MEDS ORDERED: TYLENOL EXTRA STRENGTH 500 MG ONE (10:57)
[2024-01-31] MEDS ORDERED: Lactated Ringers 1,000 ML IV ONE ×2 (10:57→15:28)
[2024-01-31] MEDS ORDERED: Decadron 4 MG ONE (10:57)
[2024-01-31] MEDS: Lactated Ringers 1,000 ML IV SCH (10:59)
[2024-01-31] MEDS: Decadron 4 MG PO ONE (10:59)
[2024-01-31] MEDS: celeBREX 100 MG PO ONE (11:00)
[2024-01-31] MEDS: TYLENOL EXTRA STRENGTH 500 MG PO ONE (11:00)
[2024-01-31] MEDS: NEURONTIN PO ONE (11:00)
[2024-01-31] MEDS ORDERED: CEFAZOLIN 2 GM/100 ML NaCl 2 GM/100 ML IVPB IV ONE (11:01)
[2024-01-31] MEDS: CEFAZOLIN 2 GM/100 ML NaCl 2 GM/100 ML IVPB IV SCH (11:02)
[2024-01-31 11:21] LABS: Absolute Neutrophil Ct (ANC) 5.11 x10^3/uL (1.56-6.13); BASOPHIL % 0.4 % (0.1-1.2); Basophil (Absolute #) 0.03 x10^3/uL (0.01-0.08); Eosinophil % 1.3 % (0.7-5.8); Eosinophil (Absolute #) 0.09 x10^3/uL (0.04-0.36); Hematocrit 39.3 % (34.1-44.9); Hemoglobin 13.2 g/dL (11.2-15.7); IMMATURE GRAN # 0.02 x10^3u/L (0.001-0.031); IMMATURE GRAN % 0.3 % (0.001-0.429); Lymphocyte (Absolute #) 1.49 x10^3/uL (1.18-3.74); Lymphocytes % 20.8 % (19.3-51.7); Mean Cell Volume 85.6 fL (79.4-94.8); Mean Corpuscular Hemoglobin 28.8 pg (25.6-32.2); Mean Corpuscular Hgb Concent. 33.6 g/dL (32.2-35.5); Mean Platelet Volume 9.6 fL (9.4-12.3); Monocyte (Absolute #) 0.41 x10^3/uL (0.24-0.86); Monocytes % 5.7 % (4.7-12.5); Neutrophil % 71.5 % (34.0-71.1); Platelet Count 321 x10^3/uL (182-369); Red Blood Count 4.59 x10^6/uL (3.93-5.22); Red Cell Distribution Width 12.2 % (11.7-14.4); White Blood Count 7.2 x10^3/uL (3.98-10.04)
[2024-01-31 11:30] LABS: ALBUMIN 4.1 g/dL (3.5-5.0); ANION GAP 13.6 MEQ/L (5-15); BILIRUBIN,TOTAL 0.8 mg/dL (0.2-1.3); Calcium 9.2 mg/dL (8.4-10.2); Creatinine 1 1.11 mg/dL (0.52-1.04); EST GLOMERULAR FILTRATION RATE 62.5 ML/MIN; Potassium 4.2 mmol/L (3.5-5.1); Total Protein 6.9 g/dL (6.3-8.2)
[2024-01-31] MEDS ORDERED: Marcaine Mpf 0.5% Vial 30 Ml ONE (12:28)
[2024-01-31] MEDS ORDERED: EXPAREL 133 MG/10 ML VIAL IJ ONE (12:29)
[2024-01-31] MEDS ORDERED: DIPRIVAN 200 MG/20 ML IV ONE (12:54)
[2024-01-31] MEDS ORDERED: ROCURONIUM BROMIDE IV ONE (12:55)
[2024-01-31] MEDS ORDERED: Decadron 4 MG INJ ONE (12:55)
[2024-01-31] MEDS ORDERED: Zofran 4 MG/2 ML VIAL ONE (12:55)
[2024-01-31] MEDS ORDERED: SUBLIMAZE 100 MCG/2 ML ONE ×2 (12:55→16:36)
[2024-01-31] MEDS ORDERED: Versed 2 MG/2 ML Injection ONE (12:57)
[2024-01-31] MEDS ORDERED: DEXMEDETOMIDINE 80 MCG/20ML-NS IV ONE (13:02)
[2024-01-31] MEDS ORDERED: BRIDION 200MG/2ML IV ONE ×2 (15:14)
--- NOTE | 2024-01-31 16:35 | XRAY ---
Indication: Left foot tendon debridement and partial tendon replacement. Intraoperative fluoroscopy provided for 30 seconds. 3 digital spot image submitted for interpretation demonstrates anterior and posterior calcaneal osteotomies with anterior spacer in situ and 2 incompletely visualized posterior screws. Correlate with intraoperative findings/report.
[2024-01-31] MEDS ORDERED: Hydromorphone 1 mg/ml Injection ONE (16:44)
--- NOTE | 2024-01-31 16:58 | XRAY ---
30 seconds of fluoroscopy was used in surgery for a left foot tendon debridement and partial tendon replacement.
[2024-01-31 17:15] VITALS: RESP 14; TEMP 97.4
[2024-01-31 17:25] VITALS: BP 150/89; PULSE 88; O2SAT 97
--- NOTE | 2024-02-03 21:30 | OP ---
SURGERY DATE/TIME: 01/31/2024 [id number] PREOPERATIVE DIAGNOSES: 1) Peroneus brevis tendinitis. 2) Peroneus longus tendinitis. 3) Peroneus brevis . POSTOPERATIVE DIAGNOSES: 1) Peroneus brevis tendinitis. 2) Peroneus longus tendinitis. 3) Peroneus brevis . PROCEDURE: Peroneus longus to peroneus brevis tendon transfer. SURGEON: Wilmer George DPM. DIRECTOR TALENT ACQUISITION: Isaac Gonzalez NP. ANESTHESIA: General plus preoperative popliteal and saphenous block. See Anesthesia report for details. HEMOSTASIS: Thigh tourniquet set to 300 mmHg for a total of 100 total tourniquet minutes. ESTIMATED BLOOD LOSS: Minimal. MATERIALS: 3 x 4 Tapestry, 2-0 PDS, 4-0 Monocryl, 3-0 nylon. INJECTABLES: See Anesthesia report for details. INDICATIONS FOR PROCEDURE: The patient is a very pleasant 43-year-old female known to my service for a reconstruction consisting of medial calcaneal slide osteotomy, gastrocnemius recession and and Lapidus procedure to the 1st tarsometatarsal joint. As a result, the patient has had somewhat successful improvement with her pain and position of her foot. However, she does have some continued pain to the lateral aspect of her foot. As a result, imaging was taken demonstrating potential deviation of the calcaneal graft. This is not a typical scenario. However, on the oblique views it does not look like there is displacement radiographically. In conjunction with this clinical presentation, demonstrates that there was a significant hard knot underneath the surface of the skin with pain with extreme range of motion as well as restricted range of motion. The patient did have an injury to this area within the first 2 weeks of the procedure which may have explained some extravasation of the graft, however, she reached approximately 90 to 100 days postop with pain and some limitation in her range of motion. As a result, options were discussed. The patient was made aware of all risks, complications, and benefits of surgical intervention. The patient was amenable to proceeding due to the fact that the pain was continuous to some degree. As a result, the patient had been made aware of all these risks and complications and is amenable to proceeding with surgical intervention. At this time, no guarantees were provided as to the outcome of surgical intervention. Plenty of time was allowed for the patient to ask questions, which were answered to her apparent satisfaction. It is at this time we decided proceed. DESCRIPTION OF PROCEDURE AND FINDINGS: The patient was brought to the postanesthesia care unit prior to the procedure and provided a popliteal and saphenous block. Following this, the patient was brought into the operating room and placed on the operating room table in the supine position. At this time, general anesthesia was administered and a well-padded thigh tourniquet was applied to the left lower extremity. The left lower extremity was then prepped and draped in typical sterile fashion and lowered onto the surgical field. At this time, an Esmarch was utilized to exsanguinate the leg. Under fluoroscopic guidance, the was identified. This being noted that the graft did not appear to be as prominent, displaced on radiographic appearance. However, decision was made to proceed. An incision was made utilizing a 10-blade. Very quickly, a very large of scar tissue was identified. From that standpoint, very careful dissection utilizing a combination of blunt and sharp dissection was carried down to lateral calcaneal wall. This portion of the procedure took approximately 3 to 5 minutes to clean out the scar tissue, making sure not to damage any of the tendons or structures in this area. The lateral aspect of the calcaneal wall demonstrated a very smooth appearance with the graft very much intact. Under manipulation, the graft did not extravasate. There was no deviation plantarly or laterally and graft was solid in . Clinically, running my finger across the calcaneal wall where the graft was, there was no high point and no points of where there would be . From that standpoint, the decision was made to forego proceeding with a the graft and making another attempt. However, a significant amount of scar tissue was identified. Decision was made to proceed with peroneal tendon debris. As a result, peroneus brevis was debrided of all scar tissue surrounding it. From that standpoint, there was some disease, however, this was primarily to the bottom 20% of the tendon which a 4-0 PDS was then utilized after debriding to tendon. Once this was performed, peroneus longus tendon was identified and deemed far too diseased to tendinitis or inflammatory response. The decision was made to resect this and proceed with the tendon transfer. This was resected. A vascular retinaculum and pulled through to identify the peroneus longus tendon. Pulling the peroneus brevis out proximally and pulling the peroneus longus distally and its remnant, the decision was made to tenodese these 2 tendons. The 2 interface 15-blade and an apposition tendon in a stable position. The 4-0 PDS was then utilized to suture these 2 tendons together. Given the amount of disease and the scar tissue that was seen , decision was made to proceed 3 x 4 Tapestry was cut in 2 pieces and wrapped around the tenodesed section of tendon as well as the peroneus brevis utilizing 4-0 Monocryl. Following this, 4-0 Monocryl copious amounts of sterile saline utilized to flush the surgical site. The 4-0 Monocryl was utilized to coapt the subcutaneous , 3-0 nylon was utilized to coapt the skin in a horizontal mattress-type fashion . The leg was cleansed and then dried. A dressing consisting of Betadine, Adaptic, 4 x 4, Kerlix, ABD, and Dany was applied to the patient's left lower extremity. The patient was then returned to the postoperative anesthesia care unit with vital signs stable and vascular status intact. The patient handled the anesthesia as well as the procedure without significant complication. Postoperative orders are as indicated in the patient's discharge chart.
== END 2024-01-31 17:38 | disposition home or self-care (01) ==
LOC: SDC 10:16
PROVIDERS: ATTEND Podiatrist Foot & Ankle Surgery
DX: M76.72 Peroneal tendinitis, left leg (principal)
CPT/HCPCS: 27659; 27691; 36415; 73630; 76000; 76937; 80053; 85025; C1763; J0690; J1100; J1171; J2250; J2405; J2704; J3010; A9270-GY

== ENCOUNTER 2024-05-28 08:42 | Day surgery (SDC) | payer BC ==
[2024-05-28] MEDS ORDERED: LIDOCAINE HCL 2% 100 MG/5 ML IJ ONE (08:43)
[2024-05-28] MEDS ORDERED: Depo-Medrol 40 MG/ML IM ONE (08:43)
[2024-05-28] MEDS ORDERED: propofoL IV ONE (10:33)
--- NOTE | 2024-05-28 12:18 | XRAY ---
Indication: Bilateral L4-S1 MBB. Intraoperative fluoroscopy provided for 10 seconds. Single digital spot image submitted for interpretation demonstrates posterior needle tips projecting over expected left and right L4-S1 nerve roots.. Correlate with intraoperative findings/report.
--- NOTE | 2024-05-28 12:27 | XRAY ---
10 seconds of fluoroscopy was used in surgery for a bilateral L4-S1 MBB.
== END 2024-05-28 11:02 | disposition home or self-care (01) ==
LOC: SDC-PAIN 08:42
PROVIDERS: ATTEND Psychiatry & Neurology Pain Medicine
DX: M47.816 Spondylosis without myelopathy or radiculopathy, lumbar region (principal); E11.9 Type 2 diabetes mellitus without complications
CPT/HCPCS: 64493; 64494; 72020; 77002; 82947; J2704

== ENCOUNTER 2024-06-29 16:41 | Emergency (ER) | payer BC ==
[2024-06-29 16:49] VITALS: TEMP 97.1
[2024-06-29] MEDS ORDERED: MOTRIN 600 MG ONE (17:23)
[2024-06-29] MEDS: MOTRIN 600 MG PO ONE (17:24)
[2024-06-29 17:31] LABS: Appearance Clear (Clear); Bacteria Few /HPF (None Seen); Bilirubin Negative (Negative); Blood Negative (Negative); Epithelial Cells Few /HPF (None Seen); Glucose, Urine Negative (Negative); Hyaline Casts NONE SEEN /LPF (0-2); Ketones Trace (Negative); Leukocyte Esterase Negative (Negative); Nitrite Negative (Negative); Ph 5.5 (4.6-8.0); Protein,Urine Dip Trace (Negative); RBC 0-2 /HPF (0-5); Specific Gravity >=1.030 (1.005-1.030); WBC 0-2 /HPF (0-5)
--- NOTE | 2024-06-29 17:56 | ERPHSYRPT ---
- History of Present Illness Source: patient Exam Limitations: no limitations Patient Subjective Stated Complaint: dizziness, ear pain , kidney pain, tired and weakness, possibly dehydrated Triage Nursing Assessment: patient is alert nad oriented x3, pupils perrla, cone machine feeder equal bilateral. states shes had ear pain recently was told fluid in ear but no infection at that time. also has headache and feels weak and tired. lips dry, skin elastic, cap refil immediate. Timing/Duration: yesterday Severity: moderate Character of Deficits: none Deficits: no difficulties Baseline/Normal Cognition: alert 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 Current Cognition: alert 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 Baseline Gait: walks w/o assistance Associated Symptoms: No confusion, No fever, No chills, No loss of consciousness, No nausea, No vomiting, No weakness, No numbness/tingling in legs/feet, No slurred speech, No trouble walking, No vision changes, No chest pain Hx Tetanus, Diphtheria Vaccination/Date Given: Yes Hx Influenza Vaccination/Date Given: Yes Hx Pneumococcal Vaccination/Date Given: Yes Immunizations Up to Date: Yes - History of Present Illness Time Seen by Provider: 06/29/24 16:55 Physician History: 43yo f pmhx DM2, htn presents via private vehicle for dizziness. Pt reports dizziness started yesterday while she was walking around a car show. Pt reports the dizziness occurs when she changes position from seated to standing, reports she had an episode of near syncope when standing yesterday that resolved after a few seconds. Pt reports she takes 3 BP medications, reports she has recently lost a significant amount of weight taking mounjaro, reports she has not been drinking enough water lately. Pt does report some fullness in both ears. Pt denies any cp, sob, n/v/d. Pt does endorse mild frontal headache. (MYA EVANS) Allergies/Adverse Reactions: atorvastatin calcium [From Lipitor] Allergy (Verified 06/29/24 17:30) muscles seize up Chanmnv-YTG-PyE Reductase Inhibitor [Xgadknc-Buz-Xdn Reductase Inhibitor] Allergy (Verified 06/29/24 17:30) muscles seize up Home Medications: Losartan Potassium 50 mg [Cozaar 50 MG] 100 mg PO DAILY 02/22/20 [History] Spironolactone 50 mg PO DAILY 02/22/20 [History] hydroCHLOROthiazide [Hydrochlorothiazide] 25 mg PO DAILY 02/22/20 [History] Carvedilol 3.125 mg [Coreg 3.125 MG] 3.125 mg PO DAILY 02/21/22 [History] Ezetimibe 10 mg [Zetia 10 MG] 10 mg PO DAILY 02/21/22 [History] Bupropion HCl Xl 150 mg [Wellbutrin XL 150 MG] 150 mg PO DAILY 10/11/23 [History] Duloxetine HCl [Cymbalta] 60 mg PO DAILY 10/11/23 [History] Levothyroxine Sodium [Unithroid] 112 mcg PO DAILY 10/11/23 [History] Lisdexamfetamine Dimesylate 30 mg PO DAILY 10/11/23 [History] Loratadine 10 mg [Claritin 10 mg] 10 mg PO DAILY 10/11/23 [History] Tirzepatide [Mounjaro] 7.5 mg SQ WEEKLY 10/11/23 [History] Albuterol Sulfate [Proair Respiclick] 90 mcg IH UD 01/24/24 [History] Cetirizine HCl [Allergy Relief] 10 mg PO UD 01/24/24 [History] Ergocalciferol (Vitamin D2) [Vitamin D2] 1,250 mcg PO UD 01/24/24 [History] Nystatin 1,000,000 unit MC UD 01/24/24 [History] Tizanidine HCl 4 mg [Zanaflex 4 MG] 4 mg PO UD 01/24/24 [History] Travel Risk - International Travel Have you traveled outside of the country in past 3 weeks: No - Emerging Infectious Disease Are you exhibiting symptoms associated with any current EIDs: No - Review of Systems Constitutional: No Symptoms Ears, Nose, & Throat: Other (ear fullness) Respiratory: No Symptoms Cardiac: No Symptoms Abdominal/Gastrointestinal: No Symptoms Neurological: Dizziness, Headache, No Focal Weakness, No Gait Changes, No Parasthesia, No Seizure, No Sensory Changes, No Speech Changes, No Tremors - Past Medical History Pertinent Past Medical History: Yes Neurological History: No Pertinent History ENT History: No Pertinent History Cardiac History: Hypertension, Other Respiratory History: Asthma Endocrine Medical History: Hypothyroidism Musculoskeletal History: No Pertinent History GI Medical History: Gallbladder Disease History: No Pertinent History Psycho-Social History: No Pertinent History Female Reproductive Disorders: No Pertinent History Other Medical History: OPEN HEART SURGERY 15 YEARS AGO, REPAIRED AORTIC VALVE AND 1 BYPASS. MULTIPLE SPRAINS OF L ANKLE AND FOOT. - Past Surgical History Past Surgical History: Yes Neuro Surgical History: No Pertinent History Cardiac: CABG, Cardiac Catheterization, Other Respiratory: No Pertinent History Gastrointestinal: Cholecystectomy, Other Genitourinary: No Pertinent History Musculoskeletal: Orthopedic Surgery Female Surgical History: Section, Hysterectomy Other Surgical History: had open heart to fix aoritc valve leaflet, L ankle tendon, gastric bypass - Female History Hx Last Menstrual Period: hysterectomy Hx Now: No - Social History Smoking Status: Never smoker Drug Use: none - Social Determinants of Health Will the patient participate in the screening: Yes Do you worry about a steady place to live?: No Do you have any problems with any of the following?: No known problems In the past 12 months,have you had to go without utilities?: No Transportation Issues: No Has anyone in your support network made you feel unsafe?: No Have you or anyone in your house had to go w/o enough food: No - [place] Coma Scale Best Eye Response ([place]): (4) open spontaneously Best Verbal Response ([place]): (5) oriented Best Motor Response ([place]): (6) obeys commands [place] Total: 15 - Physical Exam General Appearance: no apparent distress, alert Eye Exam: bilateral eye: normal inspection, PERRL, EOMI Ears, Nose, Throat Exam: normal ENT inspection, TMs normal, pharynx normal Neck Exam: normal inspection, non-tender, supple, full range of motion Respiratory: normal breath sounds, lungs clear, airway intact, No chest tenderness, No respiratory distress, No rhonchi, No wheezing, No stridor Cardiovascular: regular rate/rhythm, normal heart sounds, normal peripheral pulses, capillary refill <2 sec Gastrointestinal: soft, No tenderness, No distention Mental Status: alert, 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, 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 Exam: normal hearing, normal speech, PERRL, tongue midline, No facial pa resthesias, No facial weakness, No gaze palsy Coordination/Gait: normal finger to nose, normal gait, normal cerebellar function Motor/Sensory: no motor deficit, no sensory deficit, no pronator drift, negative Babinski's sign Skin Exam: normal color, warm, dry SpO2 Interpretation: normal SpO2: 97 O2 Delivery: Room Air - Nursing Vital Signs Nursing Vital Signs: Initial Vital Signs Temperature 97.1 F 06/29/24 16:41 Pulse Rate 94 H 06/29/24 16:41 Respiratory Rate 24 06/29/24 16:41 Blood Pressure 118/71 06/29/24 16:41 O2 Sat by Pulse Oximetry 98 06/29/24 16:41 Pain Scale Pain Intensity 0 - Course EKG Interpreted by Me: RATE (87), Sinus Rhythm, Non-specific ST Changes (II, III, avf w/ abnormal ST-T, not definitive elevation) Ordered Tests: Active Orders 24 hr Category Date Time Status EKG-ER Only STAT Care 06/29/24 17:17 Active Orthostatic Vital Signs STAT Care 06/29/24 17:17 Active CBC W DIFF Stat Lab 06/29/24 18:12 Completed CMP Stat Lab 06/29/24 18:12 Completed ETHYL ALCOHOL Stat Lab 06/29/24 18:12 Completed MAGNESIUM Stat Lab 06/29/24 18:12 Completed TROPONIN Q4H Lab 06/29/24 18:12 Completed TROPONIN Q4H Lab 06/29/24 20:17 Received TROPONIN Q4H Lab 06/30/24 02:00 Ordered TSH [TSH, 3RD Generation] Stat Lab 06/29/24 18:12 Completed UA W/RFX UR CULTURE Stat Lab 06/29/24 17:23 Completed Vitamin B12 Stat Lab 06/29/24 18:12 Completed Medication Summary Discontinued Medications Generic Name Dose Route Start Last Admin Trade Name Eduard PRN Reason Stop Dose Admin Ibuprofen 600 mg 06/29/24 17:19 06/29/24 17:24 Ibuprofen 600 Mg Tablet PO 06/29/24 17:20 600 mg STAT ONE Administration Ibuprofen Confirm 06/29/24 17:23 Ibuprofen 600 Mg Tablet Administered 06/29/24 17:24 Dose 600 mg .ROUTE .STK-MED ONE Lab/Rad Data: Laboratory Result Diagrams 06/29/24 18:12 06/29/24 18:12 Laboratory Results 06/29/24 06/29/24 06/29/24 Range/Units 18:12 18:12 18:12 WBC (3.98-10.04) x10^3/uL RBC (3.93-5.22) x10^6/uL Hgb (11.2-15.7) g/dL Hct (34.1-44.9) % MCV (79.4-94.8) fL MCH (25.6-32.2) pg MCHC (32.2-35.5) g/dL RDW (11.7-14.4) % Plt Count (182-369) x10^3/uL MPV (9.4-12.3) fL Gran % (34.0-71.1) % Immature Gran % (Auto) (0.001-0.429) % Nucleat RBC Rel Count (0.00-0.2) % Eos # (Auto) (0.04-0.36) x10^3/uL Immature Gran # (Auto) (0.001-0.031) x10^3u/L Absolute Lymphs (auto) (1.18-3.74) x10^3/uL Absolute Monos (auto) (0.24-0.86) x10^3/uL Absolute Nucleated RBC (0.00-0.012) x10^3u/L Lymphocytes % (19.3-51.7) % Monocytes % (4.7-12.5) % Eosinophils % (0.7-5.8) % Basophils % (0.1-1.2) % Absolute Granulocytes (1.56-6.13) x10^3/uL Basophils # (0.01-0.08) x10^3/uL Sodium (135-145) mmol/L Potassium (3.5-5.1) mmol/L Chloride (98-107) mmol/L Carbon Dioxide (22-30) mmol/L Anion Gap (5-15) MEQ/L BUN (7-17) mg/dL Creatinine (0.52-1.04) mg/dL Estimated GFR ML/MIN Glucose (74-106) mg/dL Calcium (8.4-10.2) mg/dL Magnesium (1.6-2.3) mg/dL Total Bilirubin (0.2-1.3) mg/dL AST (14-36) U/L ALT (0-35) U/L Alkaline Phosphatase (38-126) U/L Troponin I < 0.012 (0.000-0.033) ng/mL Serum Total Protein (6.3-8.2) g/dL Albumin (3.5-5.0) g/dL Vitamin B12 > 1000 H (239-931) pg/mL TSH 3rd Generation < 0.015 L (0.470-4.680) mIU/L Urine Color (Yellow) Urine Appearance (Clear) Urine pH (4.6-8.0) Ur Specific [place] (1.005-1.030) Urine Protein (Negative) Urine Glucose (UA) (Negative) mg/dL Urine Ketones (Negative) Urine Blood (Negative) Urine Nitrite (Negative) Urine Bilirubin (Negative) Urine Urobilinogen (0.2) mg/dL Ur Leukocyte Esterase (Negative) U Hyaline Cast (Auto) (0-2) /LPF Urine Microscopic RBC (0-5) /HPF Urine Microscopic WBC (0-5) /HPF Ur Epithelial Cells (None Seen) /HPF Urine Bacteria (None Seen) /HPF Urine Culture Reflexed (NO) Ethyl Alcohol (0-10) mg/dL 06/29/24 06/29/24 06/29/24 Range/Units 18:12 18:12 17:23 WBC 8.6 (3.98-10.04) x10^3/uL RBC 4.66 (3.93-5.22) x10^6/uL Hgb 13.3 (11.2-15.7) g/dL Hct 40.8 (34.1-44.9) % MCV 87.6 (79.4-94.8) fL MCH 28.5 (25.6-32.2) pg MCHC 32.6 (32.2-35.5) g/dL RDW 13.1 (11.7-14.4) % Plt Count 295 (182-369) x10^3/uL MPV 9.5 (9.4-12.3) fL Gran % 66.4 (34.0-71.1) % Immature Gran % (Auto) 0.2 (0.001-0.429) % Nucleat RBC Rel Count 0.0 (0.00-0.2) % Eos # (Auto) 0.20 (0.04-0.36) x10^3/uL Immature Gran # (Auto) 0.02 (0.001-0.031) x10^3u/L Absolute Lymphs (auto) 1.95 (1.18-3.74) x10^3/uL Absolute Monos (auto) 0.68 (0.24-0.86) x10^3/uL Absolute Nucleated RBC 0.00 (0.00-0.012) x10^3u/L Lymphocytes % 22.7 (19.3-51.7) % Monocytes % 7.9 (4.7-12.5) % Eosinophils % 2.3 (0.7-5.8) % Basophils % 0.5 (0.1-1.2) % Absolute Granulocytes 5.69 (1.56-6.13) x10^3/uL Basophils # 0.04 (0.01-0.08) x10^3/uL Sodium 141 (135-145) mmol/L Potassium 4.0 (3.5-5.1) mmol/L Chloride 104 (98-107) mmol/L Carbon Dioxide 27 (22-30) mmol/L Anion Gap 13.1 (5-15) MEQ/L BUN 22 H (7-17) mg/dL Creatinine 1.08 H (0.52-1.04) mg/dL Estimated GFR 64.6 ML/MIN Glucose 79 (74-106) mg/dL Calcium 9.3 (8.4-10.2) mg/dL Magnesium 1.7 (1.6-2.3) mg/dL Total Bilirubin 0.40 (0.2-1.3) mg/dL AST 18 (14-36) U/L ALT 15 (0-35) U/L Alkaline Phosphatase 54 (38-126) U/L Troponin I (0.000-0.033) ng/mL Serum Total Protein 6.2 L (6.3-8.2) g/dL Albumin 3.8 (3.5-5.0) g/dL Vitamin B12 (239-931) pg/mL TSH 3rd Generation (0.470-4.680) mIU/L Urine Color Yellow (Yellow) Urine Appearance Clear (Clear) Urine pH 5.5 (4.6-8.0) Ur Specific [place] >=1.030 A (1.005-1.030) Urine Protein Trace A (Negative) Urine Glucose (UA) Negative (Negative) mg/dL Urine Ketones Trace A (Negative) Urine Blood Negative (Negative) Urine Nitrite Negative (Negative) Urine Bilirubin Negative (Negative) Urine Urobilinogen 1.0 A (0.2) mg/dL Ur Leukocyte Esterase Negative (Negative) U Hyaline Cast (Auto) NONE SEEN (0-2) /LPF Urine Microscopic RBC 0-2 (0-5) /HPF Urine Microscopic WBC 0-2 (0-5) /HPF Ur Epithelial Cells Few (None Seen) /HPF Urine Bacteria Few A (None Seen) /HPF Urine Culture Reflexed NO (NO) Ethyl Alcohol < 10 (0-10) mg/dL - Progress Progress: improved Counseled pt/family regarding: lab results, diagnosis, need for follow-up, rad results - Progress Progress Note: 06/29/24 18:12 orthostatics not definitively positive, hx consistent w/ orthostatic hypotension lying HR 82, BP 120/71; sitting 103, 120/86; standing 101, 109/92 ekg w/ shallow ST abnormalities in inferior leads, - will evaluate w/ troponins UA suggestive of mild dehydration but not suggestive of UTI will offer water to drink, will w/u dizziness further w/ electrolyte evaluation, troponins, tsh, b12, cbc 06/29/24 18:57 electrolytes wnl, cbc wnl initial trop negative 06/29/24 18:58 I discussed pt case w/ Dr Gomez who will assume care at 19:00 (MYA EVANS) 06/29/24 20:06 Patient reexamined. She is awake, alert, oriented eating pizza. She has no chest pain and she denies dizziness. Her systolic blood pressure at this time is 108 mmHg (NAOMI GOMEZ) - Departure Departure Disposition: Home Critical Care Time: No - Departure Clinical Impression: Dizziness Condition: Stable Referrals: FLORES FELTON DO [Primary Care Provider] - Follow up/PCP as directed Additional Instructions: Drink plenty of fluids. Hold your antihypertensive medication. Call your prescribing provider tomorrow morning, 06/30/2024, to discuss modification of your antihypertensive medication if indicated and to make an appointment for evaluation. Keep a morning, noon and night daily log of your blood pressure readings for the next 2 to 3 days and provide that information to your prescribing provider.
[2024-06-29 18:14] LABS: Absolute Neutrophil Ct (ANC) 5.69 x10^3/uL (1.56-6.13); BASOPHIL % 0.5 % (0.1-1.2); Basophil (Absolute #) 0.04 x10^3/uL (0.01-0.08); Eosinophil % 2.3 % (0.7-5.8); Hematocrit 40.8 % (34.1-44.9); Hemoglobin 13.3 g/dL (11.2-15.7); IMMATURE GRAN # 0.02 x10^3u/L (0.001-0.031); IMMATURE GRAN % 0.2 % (0.001-0.429); Lymphocyte (Absolute #) 1.95 x10^3/uL (1.18-3.74); Lymphocytes % 22.7 % (19.3-51.7); Mean Cell Volume 87.6 fL (79.4-94.8); Mean Corpuscular Hemoglobin 28.5 pg (25.6-32.2); Mean Corpuscular Hgb Concent. 32.6 g/dL (32.2-35.5); Mean Platelet Volume 9.5 fL (9.4-12.3); Monocyte (Absolute #) 0.68 x10^3/uL (0.24-0.86); Monocytes % 7.9 % (4.7-12.5); Neutrophil % 66.4 % (34.0-71.1); Platelet Count 295 x10^3/uL (182-369); Red Blood Count 4.66 x10^6/uL (3.93-5.22); Red Cell Distribution Width 13.1 % (11.7-14.4); White Blood Count 8.6 x10^3/uL (3.98-10.04)
[2024-06-29 18:35] LABS: ALBUMIN 3.8 g/dL (3.5-5.0); ALKALINE PHOSPHATASE 54 U/L (38-126); ANION GAP 13.1 MEQ/L (5-15); BLOOD UREA NITROGEN 22 mg/dL (7-17); CHLORIDE 104 mmol/L (98-107); Calcium 9.3 mg/dL (8.4-10.2); Carbon Dioxide 27 mmol/L (22-30); Creatinine 1 1.08 mg/dL (0.52-1.04); EST GLOMERULAR FILTRATION RATE 64.6 ML/MIN; ETHYL ALCOHOL < 10 mg/dL (0-10); Glucose 79 mg/dL (74-106); MAGNESIUM 1.7 mg/dL (1.6-2.3); SGOT/AST 18 U/L (14-36); SGPT/ALT 15 U/L (0-35); SODIUM 141 mmol/L (135-145); Total Protein 6.2 g/dL (6.3-8.2)
[2024-06-29 20:14] VITALS: BP 112/90; PULSE 78; RESP 16; O2SAT 96
== END 2024-06-29 20:55 | disposition home or self-care (01) ==
LOC: ED 16:41
DX: R42 Dizziness and giddiness (principal); R94.6 Abnormal results of thyroid function studies; I10 Essential (primary) hypertension; Z79.85 Long-term (current) use of injectable non-insulin antidiabetic drugs; Z79.899 Other long term (current) drug therapy
CPT/HCPCS: 36415; 80053; 81001; 82077; 82607; 83735; 84443; 84484; 85025; 93005; 99283; 99284; A9270-GY

== ENCOUNTER 2024-07-24 09:38 | Day surgery (SDC) | payer BC ==
[2024-07-24] MEDS ORDERED: Sensorcaine 0.25% 10 ML IJ ONE (09:39)
[2024-07-24] MEDS ORDERED: LIDOCAINE HCL 1% AMPUL 5 ML IJ ONE (09:39)
[2024-07-24] MEDS ORDERED: propofoL IV ONE ×2 (11:14→11:32)
--- NOTE | 2024-07-24 13:03 | XRAY ---
Indication: Left lumbar sympathetic nerve block. Intraoperative fluoroscopy provided for 43 seconds. 4 digital spot image submitted for interpretation demonstrates left posterior needle tip projecting just anterior to L2 vertebral body. Small amount of contrast injected for needle tip placement. Correlate with intraoperative findings/report.
--- NOTE | 2024-07-24 13:07 | XRAY ---
43 seconds of fluoroscopy were used in surgery for a left lumbar sympathetic nerve block.
[2024-07-24] MEDS ORDERED: Lactated Ringers 1,000 ML IV ONE (13:11)
== END 2024-07-24 12:10 | disposition home or self-care (01) ==
LOC: SDC-PAIN 09:38
PROVIDERS: ATTEND Psychiatry & Neurology Pain Medicine
DX: G90.522 Complex regional pain syndrome I of left lower limb (principal); E11.9 Type 2 diabetes mellitus without complications
CPT/HCPCS: 64520; 72100; 77003; 82947; J2704; Q9966